=== PATIENT | male | born 1975 | race Caucasian/White ===

== ENCOUNTER 2025-06-11 04:14 | Day surgery (SDC) | payer BC ==
[2025-06-11 04:20] VITALS: BMI 22.9
[2025-06-11] MEDS ORDERED: ACETAMINOPHEN INJECTION 100 ML ONE (05:18)
[2025-06-11] MEDS: ACETAMINOPHEN 1000 MG/100 ML BAG IVPB ONE (05:38)
[2025-06-11] MEDS: LACTATED RINGERS SOLUTION 1000 ML INFUS.BAG IV ONE ×2 (05:38→08:28)
[2025-06-11 06:20] LABS: INR 1.04 (0.83-1.09); PROTHROMBIN TIME (PATIENT) 11.3 SEC (9.7-13.0)
[2025-06-11 06:23] LABS: ACTIVATED PTT 31.1 SECONDS (25.2-36.5)
[2025-06-11 06:30] LABS: GLUCOSE,RANDOM 93.0 mg/dL (74-106)
[2025-06-11 06:31] LABS: CO2 29.0 mmol/L (21-32); TOT PROT 7.3 g/dl (6.4-8.2)
[2025-06-11 06:33] LABS: ALK PHOS 66.0 U/L (40-150)
[2025-06-11 06:36] LABS: CREATININE 0.99 mg/dL (0.55-1.3); SGOT/AST 20.0 U/L (5-34); SGPT/ALT 22.0 U/L (0-55)
[2025-06-11 06:39] LABS: ABSOLUTE IMMATURE GRANULOCYTES 0.02 x10^3/uL (0.0-0.031); BASOPHILS # 0.03 x10^3/uL (0.01-0.08); EOSINOPHIL % 0.6 % (0.8-7.0); EOSINOPHILS # 0.05 x10^3/uL (0.04-0.54); MCHC 33.3 g/dl (32.3-36.5); MEAN CELL VOLUME 90.2 fl (79.0-92.2); MEAN PLT VOLUME 11.3 fl (9.4-12.4); MONOCYTE # 0.61 x10^3/uL (0.30-0.82); MONOCYTE % 7.5 % (5.3-12.2); RDW 11.9 % (12.1-15.9)
[2025-06-11 06:57] LABS: HIV INTERPRETATION NEGATIVE (NEGATIVE)
[2025-06-11 06:58] LABS: HCV DIAGNOSTIC IN-HOUSE W/RFLX NON-REACTIVE (NONREACTIVE)
[2025-06-11 08:12] LABS: URINE APPEARANCE CLEAR; URINE BILIRUBIN NEGATIVE (NEGATIVE); URINE COLOR YELLOW; URINE GLUCOSE (UA) NEGATIVE (NEGATIVE); URINE KETONE NEGATIVE (NEGATIVE); URINE LEUK ESTERASE NEGATIVE (NEGATIVE); URINE NITRITE NEGATIVE (NEGATIVE); URINE PROTEIN NEGATIVE (NEGATIVE); URINE UROBILINOGEN 0.2 mg/dL (0.2-1.0)
[2025-06-11] MEDS ORDERED: PIPERACILLIN/TAZOB 3.375 GM 3.375 GM/50 ML BAG IVPB ONE (08:20)
[2025-06-11] MEDS: PIPERACILLIN/TAZOB 3.375 GM 3.375 GM in DEXTROSE 5%-WATER - 50 ML IVPB ONE (08:28)
[2025-06-11] MEDS ORDERED: ONDANSETRON 4 MG/2 ML VIAL IVPUSH PRN ×2 (09:20→13:06)
[2025-06-11] MEDS: LACTATED RINGERS SOLUTION 1,000 ML IV SCH ×2 (09:42→14:10)
[2025-06-11] MEDS ORDERED: ACETAMINOPHEN 1000 MG/100 ML BAG IVPB PRN (10:00)
[2025-06-11] MEDS ORDERED: ESCITALOPRAM OXALATE 10 MG TABLET PO SCH (10:00)
[2025-06-11] MEDS ORDERED: morphine CARPU-JECT 2 MG/1 ML DISP.SYRIN IVPUSH PRN (10:36)
[2025-06-11] MEDS ORDERED: PROMETHAZINE HCL 25 MG/1 ML VIAL IVPB PRN ×2 (10:37→13:06)
[2025-06-11] MEDS ORDERED: POLYETHYLENE GLYCOL (HEALTHYLAX) 3350 17 GM PACKET PO PRN ×2 (10:41→13:06)
[2025-06-11] MEDS ORDERED: SENNOSIDES 8.8 MG/5 ML SYRUP PO PRN ×2 (10:41→13:06)
[2025-06-11] MEDS ORDERED: BUPIVACAINE HCL/PF 0.25% (2.5MG/ML) 10 ML VIAL ONE ×2 (11:07→12:03)
[2025-06-11] MEDS ORDERED: MIDAZOLAM HCL 2 MG/2 ML SINGLE DOSE VIAL ONE (11:22)
[2025-06-11] MEDS ORDERED: ROCURONIUM BROMIDE 50 MG/5 ML SYRINGE ONE (11:23)
[2025-06-11] MEDS: BUPIVACAINE HCL/PF 0.25% (2.5MG/ML) 10 ML VIAL IJ ONE (12:13)
[2025-06-11] MEDS ORDERED: ONDANSETRON 4 MG/2 ML VIAL ONE (12:30)
[2025-06-11] MEDS ORDERED: SUGAMMADEX SODIUM 200 MG/2 ML VIAL ONE (12:32)
[2025-06-11] MEDS: ALBUTEROL SO4 0.083% IH SOL 2.5 MG/3 ML VIAL.NEB. NEB ONE (13:25)
[2025-06-11] MEDS ORDERED: ALBUTEROL SO4 0.083% IH SOL 2.5 MG/3 ML VIAL.NEB. NEB ONE ×2 (13:36→14:43)
[2025-06-11 13:44] VITALS: RESP 18
[2025-06-11] MEDS ORDERED: AMPICILLIN NA/SULBACTAM NA 1.5 GM in SODIUM CHLORIDE 100 ML IVPB SCH (15:00)
[2025-06-11 15:59] VITALS: BP 114/51; PULSE 70; TEMP 98.1
[2025-06-11] MEDS ORDERED: ACETAMINOPHEN 1000 MG/100 ML BAG IVPB SCH (19:00)
[2025-06-12] MEDS ORDERED: ESCITALOPRAM OXALATE 10 MG TABLET PO SCH (10:00)
== END 2025-06-11 17:15 | disposition home or self-care (01) ==
LOC: JER 04:14 → JASUSAT 08:13 → UNDOADMIN 08:13 → JERBED 08:13 → J8W 11:35 → JASUSAT 17:15
PROVIDERS: ATTEND Student in an Organized Health Care Education/Training Program
PROC: 0DTJ4ZZ Resection of Appendix, Percutaneous Endoscopic Approach (ICD-10-PCS; principal; 2025-06-11 10:00)
DX: K35.80 Unspecified acute appendicitis (principal)
CPT/HCPCS: 36415; 74177-TC; 80053; 81003; 83735; 84484; 85025; 85610; 85730; 86803; 86850; 86900; 86901; 87086; 87389; 88304-TC; 93005; 93010; 94640; 94760; 99285-25; Q9967